=== PATIENT | female | born 1980 | race Caucasian/White ===

== ENCOUNTER 2017-02-05 09:19 | Day surgery (SDC) | payer BC ==
[~2017-02-05] VITALS: Ht 175.3 cm; Wt 82.6 kg
[~2017-02-05 09:19] MED LIST: DAILY VITAMIN1 EAC4 PO; IBUPROFEN800 MG PO; NAPROXEN500 MG PO; OXYCODONE-APAP1 EACH PO; PRENA1 CHEW TA1.4 MG PO
[2017-02-05 10:17] VITALS: BP 131/62
[2017-02-05] MEDS ORDERED: COLACE100 MG PO (13:15)
[2017-02-05] MEDS ORDERED: PERCOCET 5/31 TABLET PO (13:15)
[2017-02-05 15:01] VITALS: BP 113/64
[2017-02-05 16:14] VITALS: BP 100/56
[2017-02-05 17:50] VITALS: BP 106/62
[2017-02-09 13:52] LABS: INTERNAL CONTROL VALID? YES
== END 2017-02-05 17:54 | disposition home or self-care (01) ==
LOC: SDC 09:19
PROVIDERS: Surgery
PROC: 0WQF4ZZ Repair Abdominal Wall, Percutaneous Endoscopic Approach (ICD-10-PCS; principal; 2017-02-05)
DX: K42.9 Umbilical hernia without obstruction or gangrene (principal); Z83.49 Family history of other endocrine, nutritional and metabolic diseases; Z80.0 Family history of malignant neoplasm of digestive organs
CPT/HCPCS: 84703; 88302; C1781; J1170; J1885; J2250; J2405; J2710; J3010

== ENCOUNTER 2017-02-12 05:30 | Emergency (ER) | payer BC ==
[~2017-02-12] VITALS: Ht 175.3 cm; Wt 82.2 kg
[~2017-02-12 05:30] MED LIST changes: +COLACE100 MG PO; +PERCOCET 5/31 TABLET PO
[2017-02-12] MEDS ORDERED: EPIPEN ADU0.3 MG/0.3 IM (07:43)
[2017-02-12] MEDS ORDERED: CLARITIN10 M3 PO (07:57)
[2017-02-12] MEDS ORDERED: HYDROXYZINE HCL25 MG PO (07:58)
[2017-02-12 08:05] VITALS: BP 120/63
== END 2017-02-12 08:08 | disposition home or self-care (01) ==
LOC: EME 05:30
DX: L50.0 Allergic urticaria (principal)
CPT/HCPCS: 99281; 99284; J1200; J2930

== ENCOUNTER 2017-12-14 00:53 | Inpatient (IN) | payer BC ==
[2017-12-14] VITALS (15 sets, daily range): BP systolic 124–147; BP diastolic 59–76
[~2017-12-14] VITALS: Ht 175.3 cm; Wt 101.6 kg
[~2017-12-14 00:53] MED LIST changes: +CLARITIN10 M3 PO; +EPIPEN ADU0.3 MG/0.3 IM; +HYDROXYZINE HCL25 MG PO
[2017-12-14 10:20] LABS: BASOPHIL (%) 0.4 % (0-1); EOSINOPHIL (%) 0.8 % (0-5); EOSINOPHIL COUNT 0.1 K/uL (0-0.3); HEMATOCRIT 37.5 % (36.0-46.0); HEMOGLOBIN 12.8 G/DL (11.9-15.5); IMMATURE GRANULOCYTE (%) 0.6 % (0.0-0.7); LYMPHOCYTE COUNT 2.8 K/uL (1.0-2.8); MCH 31.4 PG (29.0-34.0); MCHC 34.1 G/DL (30.0-36.0); MCV 91.9 FL (83-99); MONOCYTE (%) 5.4 % (3-12); MONOCYTE COUNT 0.6 K/uL (0-0.8); NEUTROPHIL (%) 67.8 % (45-76); NEUTROPHIL COUNT 7.5 K/uL (1.8-6.4); PLATELET COUNT 250 K/uL (156-360); RBC DIS.WIDTH-CV 13.8 % (11.8-14.6); RBC DIS.WIDTH-SD 46.5 % (39-53); RED BLOOD COUNT 4.08 M/uL (3.80-5.20); WHITE BLOOD COUNT 11.1 K/uL (4.1-10.2)
[2017-12-14] MEDS ORDERED: IBUPROFEN800 MG PO (15:45)
[2017-12-15 07:29] VITALS: BP 121/68
[2017-12-15 14:56] VITALS: BP 130/72
== END 2017-12-15 18:17 | disposition home or self-care (01) | DRG 775 ==
LOC: LDRP-OP 00:53 → 2WEST 00:54 → LDRP-OP 01-14 16:13
PROVIDERS: Midwife
PROC: 10E0XZZ Delivery of Products of Conception, External Approach (ICD-10-PCS; principal; 2017-12-14)
PROC: 10907ZC Drainage of Amniotic Fluid, Therapeutic from Products of Conception, Via Natural or Artificial Opening (ICD-10-PCS; principal; 2017-12-14)
DX: O80 Encounter for full-term uncomplicated delivery (principal); Z37.0 Single live birth; Z3A.40 40 weeks gestation of pregnancy
CPT/HCPCS: 85025